=== PATIENT | male | born 1990 | race Caucasian/White ===

== ENCOUNTER 2016-11-27 20:44 | Emergency (ER) | payer OTHER ==
[~2016-11-27] VITALS: Ht 182.9 cm; Wt 82.6 kg
[~2016-11-27 20:44] MED LIST: AMOXICILLIN500 MG PO; AUGMENTIN500 MG PO; FLEXERIL10 MG PO; MOTRIN600 MG PO; NOHOMEMEDS; TYLENOL WITH C1 EACH PO
[2016-11-27] MEDS ORDERED: MOTRIN800 MG PO (22:51)
[2016-11-28 00:08] VITALS: BP 124/71
== END 2016-11-28 00:03 | disposition home or self-care (01) ==
LOC: EME 20:44
DX: S93.412A Sprain of calcaneofibular ligament of left ankle, initial encounter (principal); X50.1XXA Overexertion from prolonged static or awkward postures, initial encounter; Y93.39 Activity, other involving climbing, rappelling and jumping off; Y92.812 Truck as the place of occurrence of the external cause; F17.200 Nicotine dependence, unspecified, uncomplicated
CPT/HCPCS: 73610; 99281; 99284

== ENCOUNTER 2017-05-22 08:50 | Emergency (ER) | payer OTHER ==
[~2017-05-22] VITALS: Ht 182.9 cm; Wt 83.9 kg
[~2017-05-22 08:50] MED LIST changes: +MOTRIN800 MG PO
[2017-05-22 09:00] VITALS: BP 122/67
[2017-05-22] MEDS ORDERED: MOTRIN800 MG PO (09:33)
[2017-05-22] MEDS ORDERED: ULTRAM50 MG PO (09:33)
[2017-05-22] MEDS ORDERED: PEN-VEE K,VEET500 MG PO (09:33)
== END 2017-05-22 09:42 | disposition home or self-care (01) ==
LOC: EME 08:50
DX: K02.9 Dental caries, unspecified (principal); Z72.0 Tobacco use
CPT/HCPCS: 99281; 99284

== ENCOUNTER 2018-01-15 19:27 | Emergency (ER) | payer OTHER ==
[~2018-01-15] VITALS: Ht 180.3 cm; Wt 85.1 kg
[~2018-01-15 19:27] MED LIST changes: +PEN-VEE K,VEET500 MG PO; +ULTRAM50 MG PO
[2018-01-15] MEDS ORDERED: ULTRAM50 MG PO (20:51)
[2018-01-15 21:22] VITALS: BP 137/84
== END 2018-01-15 21:22 | disposition home or self-care (01) ==
LOC: EME 19:27
DX: S20.211A Contusion of right front wall of thorax, initial encounter (principal); W17.89XA Other fall from one level to another, initial encounter; Y92.812 Truck as the place of occurrence of the external cause
CPT/HCPCS: 71101; 99281; 99283